=== PATIENT | male | born 1955 | race Hispanic/Latino ===

== ENCOUNTER 2020-03-14 14:51 | Emergency (ER) | payer MEDICARE ==
[2020-03-14] MEDS ORDERED: ASPIRIN 325 MG TAB PO ONE (15:17)
[2020-03-14 15:35] LABS: Basophils # (Auto) 0.1 K/mm3 (0.0-0.1); Basophils % (Auto) 1.4 % (0.0-1.8); Eosinophils # (Auto) 0.2 K/mm3 (0.0-0.4); Eosinophils % (Auto) 4.5 % (0.0-4.3); Hematocrit 43.3 % (35.5-45.6); Hemoglobin 14.6 gm/dl (11.8-15.2); Lymphocytes # (Auto) 1.8 K/mm3 (1.2-5.4); Lymphocytes % (Auto) 36.3 % (13.4-35.0); Mean Corpuscular HGB Conc 34 % (32-34); Mean Corpuscular Volume 98 fl (84-94); Monocytes # (Auto) 0.4 K/mm3 (0.0-0.8); Monocytes % (Auto) 7.3 % (0.0-7.3); Platelet Count 284 K/mm3 (140-440); Red Blood Count 4.44 M/mm3 (3.65-5.03); Red Cell Distribution Width 15.2 % (13.2-15.2)
--- NOTE | 2020-03-14 15:47 | XRay Report ---
CHEST 1 VIEW INDICATION: Chest Pain COMPARISON: None FINDINGS: Support devices: None Heart: Normal Lungs/Pleura: No acute pulmonary or pleural findings. IMPRESSION: 1. No acute disease. Signer Name: Lawrence Huynh MD Signed: 03/14/2020 3:43 PM Workstation Name: [id number]
[2020-03-14 15:57] LABS: BUN/Creatinine Ratio 10; Blood Urea Nitrogen 7 mg/dL (9-20); Calcium 8.9 mg/dL (8.4-10.2); Hemolysis Index 4
[2020-03-14 16:08] LABS: Amphetamine Screen,Urine PRESUMPTIVE NEGATIVE; Benzodiazepines Screen,Urine PRESUMPTIVE NEGATIVE; Cannabinoid Screen,Urine PRESUMPTIVE NEGATIVE; Methadone Screen,Urine PRESUMPTIVE NEGATIVE; Opiate Screen,Urine PRESUMPTIVE NEGATIVE
--- NOTE | 2020-03-14 16:13 | Emergency Department Report ---
ED Chest Pain HPI - General Chief Complaint: Chest Pain Stated Complaint: CHEST PAIN/ETOH Time Seen by Provider: 03/14/20 16:07 Source: patient Mode of arrival: Stretcher Limitations: No Limitations - History of Present Illness Initial Comments: Chief complaint: "I am just hungry. I am homeless." HPI: This is a 64-year-old male with a history of alcohol dependence who presents with chest pain shortness of breath since yesterday. He was brought to the ED emergency department via EMS. He denies chest pain or shortness of breath at this time. He admitted to drinking 1 bottle of vodka today. No history of high blood pressure diabetes no history of heart disease. He states that his only medical issue are his knees. He has received surgery on 1 of his knees in the past. He does not take any medications. Chest pain is nondescript. MD Complaint: chest pain -: Gradual, days(s) (1) Onset: during rest Severity: mild Severity scale (0 -10): 0 Consistency: now resolved Improves With: nothing Worsens With: nothing - Related Data Allergies Allergy/AdvReac Type Severity Reaction Status Date / Time No Known Allergies Allergy Unverified 05/17/16 17:53 Heart Score - HEART Score History: Slightly suspicious EKG: Non-specific Age: > 65 Risk factors: No known risk factors Troponin: < normal limit HEART Score: 3 ED Review of Systems ROS: Stated complaint: CHEST PAIN/ETOH Other details as noted in HPI Comment: All other systems reviewed and negative Constitutional: denies: fever, malaise Respiratory: shortness of breath. denies: cough Cardiovascular: chest pain ED Past Medical Hx - Past Medical History Previous Medical History?: No - Surgical History Past Surgical History?: Yes Additional Surgical History: 7right knee - Social History Smoking Status: Never Smoker Substance Use Type: Alcohol ED Physical Exam - General Limitations: No Limitations General appearance: alert, in no apparent distress, other (Disheveled dirty clothing pleasant) - Head Head exam: Present: atraumatic, normocephalic - Eye Eye exam: Present: normal appearance, conjunctival injection. Absent: scleral icterus - ENT ENT exam: Present: mucous membranes moist - Neck Neck exam: Present: normal inspection. Absent: tenderness, meningismus - Respiratory Respiratory exam: Present: normal lung sounds bilaterally. Absent: respiratory distress, wheezes, rales - Cardiovascular Cardiovascular Exam: Present: regular rate, normal rhythm, normal heart sounds. Absent: systolic murmur, diastolic murmur, rubs, gallop - GI/Abdominal GI/Abdominal exam: Present: soft. Absent: distended, tenderness, guarding, rebound - Rectal Rectal exam: Present: deferred - Neurological Exam Neurological exam: Present: alert, oriented X3 - Psychiatric Psychiatric exam: Present: normal affect, normal mood - Skin Skin exam: Present: warm, dry, intact, normal color. Absent: rash ED Course Vital Signs 03/14/20 03/14/20 03/14/20 15:13 15:16 15:30 Temperature 98 F Pulse Rate 80 84 Respiratory 16 14 Rate Blood Pressure 126/91 129/83 129/83 O2 Sat by Pulse 97 95 96 Oximetry 03/14/20 03/14/20 03/14/20 15:46 16:00 16:16 Temperature Pulse Rate 102 H 74 Respiratory 16 21 Rate Blood Pressure 142/90 129/83 146/100 O2 Sat by Pulse 97 96 Oximetry 03/14/20 03/14/20 03/14/20 16:30 16:46 17:00 Temperature Pulse Rate 89 84 93 H Respiratory 18 12 15 Rate Blood Pressure 142/90 158/100 158/100 O2 Sat by Pulse 90 97 Oximetry 03/14/20 03/14/20 03/14/20 17:16 17:30 17:46 Temperature Pulse Rate 95 H 99 H 97 H Respiratory 12 14 14 Rate Blood Pressure 157/78 157/78 136/87 O2 Sat by Pulse 95 95 95 Oximetry 03/14/20 03/14/20 03/14/20 18:00 18:16 18:30 Temperature Pulse Rate 98 H 94 H 100 H Respiratory 13 12 13 Rate Blood Pressure 136/87 152/92 142/92 O2 Sat by Pulse 96 97 97 Oximetry 03/14/20 03/14/20 03/14/20 18:46 19:00 19:16 Temperature Pulse Rate 100 H 101 H 107 H Respiratory 14 14 12 Rate Blood Pressure 142/100 157/88 160/93 O2 Sat by Pulse 97 97 98 Oximetry 03/14/20 19:19 Temperature 98.1 F Pulse Rate Respiratory Rate Blood Pressure O2 Sat by Pulse Oximetry ED Medical Decision Making - Lab Data Result diagrams: 03/14/20 15:20 03/14/20 15:20 Laboratory Results - last 24 hr 03/14/20 03/14/20 03/14/20 15:20 15:20 15:20 WBC 5.1 RBC 4.44 Hgb 14.6 Hct 43.3 MCV 98 H MCH 33 H MCHC 34 RDW 15.2 Plt Count 284 Lymph % (Auto) 36.3 H [place] % (Auto) 7.3 Eos % (Auto) 4.5 H Baso % (Auto) 1.4 Lymph # 1.8 [place] # 0.4 Eos # 0.2 Baso # 0.1 Seg Neutrophils % 50.5 Seg Neutrophils # 2.6 Sodium 142 Potassium 3.9 Chloride 101.7 Carbon Dioxide 23 Anion Gap 21 BUN 7 L Creatinine 0.7 L Estimated GFR > 60 BUN/Creatinine Ratio 10 Glucose 94 Calcium 8.9 Troponin T < 0.010 Urine Opiates Screen Urine Methadone Screen Ur Barbiturates Screen Ur Phencyclidine Scrn Ur Amphetamines Screen U Benzodiazepines Scrn U Marijuana (THC) Screen Plasma/Serum Alcohol 0.34 H 03/14/20 15:50 WBC RBC Hgb Hct MCV MCH MCHC RDW Plt Count Lymph % (Auto) [place] % (Auto) Eos % (Auto) Baso % (Auto) Lymph # [place] # Eos # Baso # Seg Neutrophils % Seg Neutrophils # Sodium Potassium Chloride Carbon Dioxide Anion Gap BUN Creatinine Estimated GFR BUN/Creatinine Ratio Glucose Calcium Troponin T Urine Opiates Screen Presumptive negative Urine Methadone Screen Presumptive negative Ur Barbiturates Screen Presumptive negative Ur Phencyclidine Scrn Presumptive negative Ur Amphetamines Screen Presumptive negative U Benzodiazepines Scrn Presumptive negative U Marijuana (THC) Screen Presumptive negative Plasma/Serum Alcohol - EKG Data 03/14/20 16:11 EKG obtained 1505 Normal sinus rhythm rate 80 bpm normal axis normal intervals no ST-T signs of ischemia - Radiology Data Radiology results: report reviewed Chest radiograph: No acute findings according to radiology impression - Medical Decision Making 1. Chest pain with shortness of breath: Heart score 3, chest pain is atypical for acute coronary syndrome. According to history physical presentation, no indication of emergent causes such as pulmonary embolism, pneumothorax, pericarditis, aortic dissection, pneumonia or acute coronary syndrome. He is currently chest pain-free. He does not have known cardiovascular risk factors. 3 sets of troponin negative. 2. Acute alcohol intoxication. Blood alcohol level is markedly elevated. 3. Homelessness: Patient provided a list of outpatient resources Mr. Tuttle is discharged to self-care Critical care attestation.: If time is entered above; I have spent that time in minutes in the direct care of this critically ill patient, excluding procedure time. ED Disposition Clinical Impression: Chest pain, Acute alcohol intoxication Disposition: DC-01 TO HOME OR SELFCARE Is pt being admited?: No Does the pt Need Aspirin: No Condition: Stable Referrals: ERNST KOEHLER MD [Staff Physician] - as needed
[2020-03-14 16:19] LABS: Cocaine Screen,Urine PRESUMPTIVE POSITIVE
[2020-03-14 20:40] VITALS: BP 156/108
== END 2020-03-14 20:40 | disposition home or self-care (01) ==
LOC: ED 14:51
DX: F10.129 Alcohol abuse with intoxication, unspecified (principal); R07.9 Chest pain, unspecified; Z98.890 Other specified postprocedural states; Z79.899 Other long term (current) drug therapy
CPT/HCPCS: 36415; 71045; 80048; 80307; 80320; 84484; 85025; 93005; G0480